=== PATIENT | male | born 1970 | race Caucasian/White ===

== ENCOUNTER 2018-04-06 05:44 | Day surgery (SDC) | payer OTHER ==
[2018-04-06] MEDS ORDERED: FENTAnyl 50 MCG/ML VIAL (07:58)
[2018-04-06] MEDS ORDERED: MIDAZOLAM 1 MG/ML 2 ML INJ ×2 (07:58)
== END 2018-04-06 10:37 | disposition home or self-care (01) ==
LOC: GIL 05:44
DX: K21.0 Gastro-esophageal reflux disease with esophagitis (principal); K29.70 Gastritis, unspecified, without bleeding
CPT/HCPCS: 43239; 88305